=== PATIENT | female | born 1975 | race Caucasian/White ===

== ENCOUNTER 2018-09-25 10:22 | Day surgery (SDC) | payer BC ==
[2018-09-24 11:38] VITALS: BMI 28.3
[~2018-09-25 10:22] MED LIST: LACTATED RINGERS 1,000 ML IV SCH; LIDOCAINE 1% 20 ML VIAL (10MG/ML) FOR IV START INTRADERMA PRN
[2018-09-25 10:47] VITALS: TEMP 97.9
[2018-09-25] MEDS ORDERED: LIDOCAINE 1% INJ 10MG/ML (20 ML MDV) ONE (11:23)
[2018-09-25] MEDS ORDERED: PROPOFOL 10 MG/ML 20 ML VIAL IV ONE (11:23)
--- NOTE | 2018-09-25 11:48 | P.PCN ---
Date of Procedure: 09/25/18 Procedure(s) Performed: BRIEF HISTORY: Patient is a 43-year-old, pleasant, white female, scheduled for an upper endoscopy as a part of SURVEILLANCE of long-standing history of pernicious anemia that was diagnosed in 2010. She is scheduled for surveillance upper endoscopy in the last one was done in 2059. She denies any GI symptoms other than abdominal bloating.. PROCEDURE PERFORMED: Esophagogastroduodenoscopy with biopsy. PREOPERATIVE DIAGNOSIS: Pernicious anemia/chronic atrophic gastritis. IV sedation per anesthesia. PROCEDURE: After informed consent was obtained, the patient was brought into the endoscopy unit. IV sedation was administered by Anesthesia under continuous monitoring. Initially the Olympus GIF-140 video endoscope was inserted into the mouth. Esophagus intubated without any difficulty. It was gradually advanced into the stomach and duodenum and carefully examined. The bulb and the second part of the duodenum appeared normal. The scope at this time was withdrawn to the stomach, adequately insufflated with air, and upon careful examination, mucosa of the antrum, body, had mild diffuse gastritis and biopsies were done from this area. The cardia and the fundus appeared normal. The scope was then withdrawn into the esophagus. The GE junction was located at 39 cm from the incisors. The esophagus appeared normal. There were no erosions or ulcerations seen and the patient tolerated the procedure well. IMPRESSION: 1. Mild diffuse gastritis. 2. No evidence of gastric polyps. RECOMMENDATIONS: The findings of this examination were discussed with the patient as well as a family. She was advised to follow with the biopsy results. Based the biopsy results she can have a surveillance upper endoscopy every one to 2 years.
[2018-09-25 12:02] VITALS: RESP 16
[2018-09-25 12:26] VITALS: BP 124/83; PULSE 70
== END 2018-09-25 12:54 | disposition home or self-care (01) ==
LOC: ORWHC2ENDO 10:22
PROVIDERS: ATTEND Internal Medicine Gastroenterology
DX: D51.0 Vitamin B12 deficiency anemia due to intrinsic factor deficiency (principal); K29.50 Unspecified chronic gastritis without bleeding; I10 Essential (primary) hypertension; J45.20 Mild intermittent asthma, uncomplicated; Z79.899 Other long term (current) drug therapy
CPT/HCPCS: 81025; 88305; 43239; J2001; J2704

== ENCOUNTER 2020-11-08 09:35 | Day surgery (SDC) | payer BC ==
[2020-11-02 11:02] VITALS: BMI 28.3
[~2020-11-08 09:35] MED LIST changes: +LIDOCAINE 1% (10MG/ML) FOR IV START INTRADERMA PRN; -LIDOCAINE 1% 20 ML VIAL (10MG/ML) FOR IV START INTRADERMA PRN
[2020-11-08 10:27] VITALS: TEMP 98
[2020-11-08] MEDS ORDERED: ONDANSETRON 4 MG/2 ML VIAL ONE (10:35)
[2020-11-08] MEDS ORDERED: LIDOCAINE 1% INJ 10MG/ML (20 ML MDV) ONE (11:02)
[2020-11-08] MEDS ORDERED: PROPOFOL 10 MG/ML 20 ML VIAL IV ONE (11:02)
--- NOTE | 2020-11-08 11:23 | P.PCN ---
Date of Procedure: 11/08/20 Procedure(s) Performed: Brief history: Patient is a pleasant 45-year-old white female scheduled for an elective upper endoscopy as well as colonoscopy as a part of evaluation of pernicious anemia/atrophic gastritis and intermittent rectal bleeding. Procedure performed: Esophagogastroduodenoscopy with biopsy Colonoscopy Preoperative diagnosis: Pernicious anemia/atrophic gastritis Anesthesia: [facility] [place] Procedure: After informed consent was obtained from the patient was brought into the endoscopy unit and IV sedation was administered by anesthesia under continuous monitoring. Initially upper endoscopy was done. The Olympus GF 160 video endoscope was inserted inserted into the mouth and esophagus intubated without any difficulty and was gradually advanced into the stomach and duodenum and carefully examined. The bulb and second part of the duodenum appeared normal. The scope was then withdrawn into the stomach adequately insufflated with air and upon careful examination the antrum and body, had mild gastritis and biopsies were done from the antrum as well as body the stomach. The cardia and fundus appeared normal. The scope was then withdrawn into the esophagus. The GE junction was located at 38 cm to the incisors. It appeared regular with no erythema erosions or ulcerations. Rest of the esophagus appeared normal. Patient tolerated the procedure well. At this time the patient continued to remain sedation. Initial digital rectal examination was normal. Olympus CF 160 video colonoscope was then inserted into the rectum and gradually advanced to the cecum without any difficulty. Careful examination was performed as the scope was gradually being withdrawn. The prep was excellent. The cecum, ascending colon, transverse colon, descending colon, sigmoid colon and rectum appeared normal. Retroflexion was performed in the rectum and small internal were noted. Patient tolerated the procedure well. Impression: 1. Upper endoscopy revealed mild gastritis. 2. Colonoscopy revealed small internal hemorrhoids but no evidence of colitis or colorectal neoplasia Recommendations: Findings of this examination were discussed with the patient as well as her family. She was advised to follow with the biopsy results. She will be on a high-fiber diet and take fiber supplements a regular basis.
[2020-11-08 11:53] VITALS: BP 110/59; PULSE 71; RESP 20
== END 2020-11-08 12:30 | disposition home or self-care (01) ==
LOC: ORWHC2ENDO 09:35
PROVIDERS: ATTEND Internal Medicine Gastroenterology
DX: K64.8 Other hemorrhoids (principal); K29.41 Chronic atrophic gastritis with bleeding; D51.0 Vitamin B12 deficiency anemia due to intrinsic factor deficiency; I10 Essential (primary) hypertension; J45.909 Unspecified asthma, uncomplicated; G43.909 Migraine, unspecified, not intractable, without status migrainosus; Z79.899 Other long term (current) drug therapy; Z90.89 Acquired absence of other organs; Z98.890 Other specified postprocedural states; Z91.89 Other specified personal risk factors, not elsewhere classified
CPT/HCPCS: 81025; 45378; 43239; J2405; J2001; J2704; 88305; 88341; 88342

== ENCOUNTER 2024-02-02 06:25 | Day surgery (SDC) | payer BC ==
[~2024-02-02 06:25] MED LIST changes: +HYDROmorphone 0.5 MG/0.5 ML SYRINGE IVP PRN; -LACTATED RINGERS 1,000 ML IV SCH; -LIDOCAINE 1% (10MG/ML) FOR IV START INTRADERMA PRN; +Pre Op ABX Message 1 EACH MISC MISCELLANE ONE
[2024-02-02] MEDS: IV FLUID CONTINUATION 1,000 ML IV ONE ×2 (06:49→08:40)
[2024-02-02] MEDS: LACTATED RINGERS 1,000 ML IV SCH (07:02)
[2024-02-02] MEDS: ONDANSETRON 4 MG/2 ML VIAL IVP ONE (07:04)
[2024-02-02] MEDS: DEXAMETHASONE SOD PHOSPHATE 4 MG/ML 1 ML VIAL IV ONE (07:04)
--- NOTE | 2024-02-02 07:23 | P.HPOB ---
History of Present Illness H&P Date: 02/02/24 Chief Complaint: menorrhagia 48 year old presents for D&C hysteroscopy and endometrial ablation with NovaSure for menometrorrhagia. Review of Systems All systems: negative Constitutional: Denies chills, Denies fever Eyes: denies blurred vision, denies pain Ears, nose, mouth and throat: Denies headache, Denies sore throat Cardiovascular: Denies chest pain, Denies shortness of breath Respiratory: Denies cough Gastrointestinal: Denies abdominal pain, Denies diarrhea, Denies nausea, Denies vomiting Genitourinary: Denies dysuria, Denies hematuria Musculoskeletal: Denies myalgias Integumentary: Denies pruritus, Denies rash Neurological: Denies numbness, Denies weakness Psychiatric: Denies anxiety, Denies depression Endocrine: Denies fatigue, Denies weight change Past Medical History Past Medical History: Asthma, Blood Disorder, Fibromyalgia, Hearing Disorder / Deafness, Hypertension Additional Past Medical History / Comment(s): pernicious anemia, iron defiency anemia, atrophic gastritis type B, dimas ringing in ears/hearing loss- no hearing aids. very heavy menstrual cycles History of Any Multi-Drug Resistant Organisms: None Reported Past Surgical History: Adenoidectomy, Section, Ear Surgery Additional Past Surgical History / Comment(s): EGD's, C/S x2, several bilateral myringotomy & tubes Past Anesthesia/Blood Transfusion Reactions: Previous Problems w/ Anesthesia, Family History of Problems w/ Anesthesia, Postoperative Nausea & Vomiting (PONV) Additional Past Anesthesia/Blood Transfusion Reaction / Comment(s): takes a long time to wake after anesthesia. pt states - when anesthesia is injected in IV experienced "horrible burning pain". last procedure topical anesthesia used to numb area. pt states mother had problems with anesthesia but unsure what exact issues were. Smoking Status: Never smoker - Past Family History Mother Family Medical History: No Reported History Medications and Allergies Home Medications Medication Instructions Recorded Confirmed Type Albuterol Inhaler [Ventolin Hfa 1 - 2 puff INHALATION RT-Q6H PRN 09/24/18 02/02/24 History Inhaler] Cyanocobalamin [Vitamin B-12 1,000 mcg SQ QMONTH 09/24/18 02/02/24 History Injection] Allergies Allergy/AdvReac Type Severity Reaction Status Date / Time No Known Allergies Allergy Verified 02/02/24 06:54 Exam Osteopathic Statement: *. No significant issues noted on an osteopathic structural exam other than those noted in the History and Physical/Consult. Vital Signs Temp Pulse Resp BP Pulse Ox 02/02/24 06:50 97.5 F L 72 16 147/83 100 Intake and Output 02/01/24 02/02/24 02/02/24 22:59 06:59 14:59 Other: Weight 72.8 kg Heart: Regular rate and rhythm Lungs: Clear to auscultation bilaterally Abdomen: Soft, nontender Extremities: Negative Homans sign Assessment and Plan (1) Menorrhagia with irregular cycle Current Visit: Yes Status: Acute Code(s): N92.1 - EXCESSIVE AND FREQUENT MENSTRUATION WITH IRREGULAR CYCLE SNOMED Code(s): 732602310 Plan: 1. D&C hysteroscopy and endometrial ablation with NovaSure.
[2024-02-02] MEDS ORDERED: LIDOCAINE 1% INJ 10MG/ML (20 ML MDV) ONE (07:30)
[2024-02-02] MEDS ORDERED: fentaNYL (PF) 50 MCG/ML 2 ML AMP ONE (07:30)
[2024-02-02] MEDS ORDERED: PROPOFOL 10 MG/ML 20 ML VIAL IV ONE (07:30)
--- NOTE | 2024-02-02 08:08 | P.OP ---
Date of Procedure: 02/02/24 Preoperative Diagnosis: 1. menormetrorrhagia Postoperative Diagnosis: 1. menormetrorrhagia Procedure(s) Performed: D&C hysteroscopy and endometrial ablation with NovaSure Anesthesia: LORENA Surgeon: Tammy Vallejo Estimated Blood Loss (ml): 3 IV fluids (ml): 400 Urine output (ml): 5 Pathology: other (endometrial currettings) Condition: stable Disposition: PACU Operative Findings: normal uterus. sounded to 10 cm. cavity length 6.5, width 4.1, power 147 W for 46 seconds. adequate ablation after novasure Description of Procedure: Patient is taken the operating room where general anesthesia was obtained without difficulty. She was prepped and draped in normal sterile fashion dorsal lithotomy position, legs placed in the candy cane stirrups. Bladder was drained of all urine. Weighted speculum placed in the vagina and the anterior lip the cervix was grasped with serial tooth tenaculum. The uterus sounded to 10 cm and the cervix under 3.5 cm making the cavity length 6.5 cm. The cervix was dilated to #8 Hegar dilator. Hysteroscopy was then performed. Both ostia were visualized and there was a smooth contour of the uterus. Sharp curet was then gently used to obtain endometrial curettings. The NovaSure was introduced into the uterus with a cavity length of 6.5 cm, width 4.1 cm. after cavity assessment was passed, the time of ablation was 46 seconds at 147 W. Hysteroscopy was again performed and adequate ablation was noted. All instruments removed from the vagina. Patient tolerated the procedure well, sponge and instrument counts were correct 2 and she was taken to recovery in stable condition.
[2024-02-02 08:17] VITALS: TEMP 97.6
[2024-02-02 09:23] VITALS: RESP 16
[2024-02-02 09:55] VITALS: BP 138/73; PULSE 69
== END 2024-02-02 09:49 | disposition home or self-care (01) ==
LOC: OR 06:25
PROVIDERS: ATTEND Obstetrics & Gynecology
DX: N84.0 Polyp of corpus uteri (principal); M79.7 Fibromyalgia; J45.909 Unspecified asthma, uncomplicated; I10 Essential (primary) hypertension; H91.90 Unspecified hearing loss, unspecified ear; Z87.19 Personal history of other diseases of the digestive system; Z90.89 Acquired absence of other organs; Z79.51 Long term (current) use of inhaled steroids; Z79.899 Other long term (current) drug therapy
CPT/HCPCS: 81025; 88305; 58563; J1100; J2405; J2001; J3010; J2704